=== PATIENT | female | born 1975 | race Caucasian/White ===

== ENCOUNTER → 2021-01-16 | Outpatient (CLI) | payer OTHER | LOC: LAB SHORT 11:07 → LAB 11:07 | DX: C44.519 Basal cell carcinoma of skin of other part of trunk (principal) | CPT/HCPCS: 88305 ==

== ENCOUNTER → 2022-03-19 | Outpatient (CLI) | payer OTHER ==
[2022-03-20 09:09] LABS: Candida species (DNA Probe) Negative (NEGATIVE); G. vaginalis (DNA Probe) Negative (NEGATIVE); T. vaginalis (DNA Probe) Negative (NEGATIVE)
== END | disposition home or self-care (01) ==
LOC: LAB SHORT 17:13 → LAB 17:13
PROVIDERS: Student in an Organized Health Care Education/Training Program
DX: N89.8 Other specified noninflammatory disorders of vagina (principal)
CPT/HCPCS: 87480; 87510; 87660

== ENCOUNTER 2022-04-07 10:10 | Day surgery (SDC) | payer OTHER ==
[~2022-04-07] VITALS: Ht 167.6 cm; Wt 71.8 kg
[2022-04-07] MEDS ORDERED: LISI5 PO (10:41)
[2022-04-07] MEDS ORDERED: ADDERALL 10 MG10 MG PO (10:41)
[2022-04-07] MEDS ORDERED: ACYC200 PO (10:42)
[2022-04-07] MEDS ORDERED: Prilosec Otc20 MG PO (10:42)
--- NOTE | 2022-04-07 12:00 | NUR ---
PT CONVERSING APPROPRIATELY; DENIES PAIN POST PROCEDURE, VSS. PT DRESSED SELF WITHOUT ISSUE, SITE WITHOUT SWELLING/HEMATOMA, TELFA AND TEGADERM DRSG INTACT. PT RECEIVED DISCHARGE INSTRUCTIONS, MED LIST AND AFTER CARE INSTRUCTIONS; VERBALIZED GOOD UNDERSTANDING. PT LEFT FACILITY VIA AMB, CONDITION STABLE.
== END 2022-04-07 23:16 | disposition home or self-care (01) ==
LOC: MHTC 10:10
DX: R00.1 Bradycardia, unspecified (principal); R55 Syncope and collapse
CPT/HCPCS: 33285; C1764

== ENCOUNTER → 2022-09-16 | Outpatient (CLI) | payer OTHER ==
[~2022-09-16] MED LIST: ACYC200 PO; ADDERALL 10 MG10 MG PO; LISI5 PO; Prilosec Otc20 MG PO
[2022-09-24 12:11] LABS: HPV 16 Negative (Negative); HPV 18 Negative (Negative); HPV OTHER HR TYPES Positive (Negative)
== END ==
LOC: LAB SHORT 10:24 → LAB 10:24
PROVIDERS: Obstetrics & Gynecology
DX: Z87.42 Personal history of other diseases of the female genital tract (principal)
CPT/HCPCS: 87624; 87625; G0145